=== PATIENT | female | born 1950 | race Caucasian/White ===

== ENCOUNTER → 2019-03-19 | Outpatient (CLI) | payer OTHER, BC | LOC: HYPER 03-16 15:30 | DX: L97.812 Non-pressure chronic ulcer of other part of right lower leg with fat layer exposed (principal); S90.511D Abrasion, right ankle, subsequent encounter; L84 Corns and callosities; G89.29 Other chronic pain; I10 Essential (primary) hypertension; F32.9 Major depressive disorder, single episode, unspecified; Z79.01 Long term (current) use of anticoagulants; Z95.0 Presence of cardiac pacemaker; Z86.74 Personal history of sudden cardiac arrest; X58.XXXD Exposure to other specified factors, subsequent encounter ==

== ENCOUNTER → 2019-04-02 | Outpatient (CLI) | payer OTHER, BC | LOC: HYPER 06:45 | DX: L97.812 Non-pressure chronic ulcer of other part of right lower leg with fat layer exposed (principal); S90.511D Abrasion, right ankle, subsequent encounter; L84 Corns and callosities; G89.29 Other chronic pain; J18.9 Pneumonia, unspecified organism; F41.9 Anxiety disorder, unspecified; F32.9 Major depressive disorder, single episode, unspecified; Z95.0 Presence of cardiac pacemaker; Z86.74 Personal history of sudden cardiac arrest; X58.XXXD Exposure to other specified factors, subsequent encounter ==

== ENCOUNTER → 2019-04-15 | Outpatient (CLI) | payer OTHER, BC | LOC: HYPER 06:41 | DX: L89.620 Pressure ulcer of left heel, unstageable (principal); L97.812 Non-pressure chronic ulcer of other part of right lower leg with fat layer exposed; L84 Corns and callosities; G89.29 Other chronic pain; I10 Essential (primary) hypertension; F32.9 Major depressive disorder, single episode, unspecified; F41.9 Anxiety disorder, unspecified; Z95.0 Presence of cardiac pacemaker; Z86.74 Personal history of sudden cardiac arrest ==

== ENCOUNTER → 2019-04-29 | Outpatient (CLI) | payer OTHER, BC | LOC: HYPER 06:54 | DX: L97.812 Non-pressure chronic ulcer of other part of right lower leg with fat layer exposed (principal); L97.311 Non-pressure chronic ulcer of right ankle limited to breakdown of skin; L89.620 Pressure ulcer of left heel, unstageable; L84 Corns and callosities; I10 Essential (primary) hypertension; G89.29 Other chronic pain; F41.9 Anxiety disorder, unspecified; F32.9 Major depressive disorder, single episode, unspecified; Z87.01 Personal history of pneumonia (recurrent); Z95.0 Presence of cardiac pacemaker; Z86.74 Personal history of sudden cardiac arrest ==

== ENCOUNTER → 2019-06-10 | Outpatient (CLI) | payer OTHER, BC | LOC: HYPER 06:16 | DX: L89.620 Pressure ulcer of left heel, unstageable (principal); L97.812 Non-pressure chronic ulcer of other part of right lower leg with fat layer exposed; L84 Corns and callosities; G89.29 Other chronic pain; I10 Essential (primary) hypertension; F32.9 Major depressive disorder, single episode, unspecified; Z95.0 Presence of cardiac pacemaker; Z86.74 Personal history of sudden cardiac arrest ==